=== PATIENT | female | born 1990 | race American Indian/Alaskan Native ===

== ENCOUNTER 2017-10-14 05:39 | Inpatient (IN) | payer BC ==
[2017-10-14 05:49] VITALS: BMI 32.1
--- NOTE | 2017-10-14 05:49 | OBHP ---
Datetime: 10/14/2017 05:47 IP Adm Impression: Term, intrauterine IP Admit Plan: Admit to unit; Initiate Section protocol Admit Comment, IP Provider: at [id number] he c/o ctxs and dec fm. pt has previous c/s, no lof. obhx 1 x c/s pmh den med pnv all njda psh c/s soch de a/p at 38weeks previous c/s admit to l_d for c/s npo/ivf labs cont donald and efm dr sun will take the consent Pelvic Type - PN: Adequate Extremities - PN: Normal Abdomen - PN: Normal Back - PN: Normal Breast - PN: Normal Lungs - PN: Normal Heart - PN: Normal Thyroid - PN: Normal Neurologic - PN: Normal HEENT - PN: Normal General - PN: Normal FHR - Baseline A Provider: [id number] Contraction Comments Provider: occ IP Hx Assessment: The History has been Reviewed and is Current EGA AdmitDate IP: 38.0 Vital Signs Provider: Reviewed; Within Normal Limits IP Chief Complaint: Uterine contractions; Decreased movement NICHD Variability Prov Fetus A: Moderate 6-25bpm NICHD Accel Fetus A IP Provider: [id number] FHR Category Provider Fetus A: Category I Genitourinary Exam: Normal DTRs - PN: Normal
[2017-10-14] MEDS ORDERED: Sodium Citrate/Citric Acid 15 ml Sol PO ONE (05:50)
[2017-10-14] MEDS ORDERED: cefOXitin IV 2 gm in Dextrose 2 GM/50 ML BAG IVPB ONE ×2 (05:50→06:46)
[2017-10-14] MEDS ORDERED: Lactated Ringer's 1,000 ML IV SCH (06:00)
[2017-10-14 06:06] LABS: BASO % 0.5 % (0.0-2.0); EOS % 0.2 % (0.0-4.0); HEMATOCRIT 31.7 % (34.0-47.0); LYMPH # 2.3 K/uL (1.0-4.3); LYMPH % 23.7 % (20.0-40.0); MEAN CELL VOLUME 80.8 fL (81.0-99.0); MEAN CORPUSCULAR HEMOGLOBIN 25.6 pg (27.0-31.0); MEAN CORPUSCULAR HGB CONC 31.7 g/dL (33.0-37.0); MEAN PLATELET VOLUME 7.6 fL (7.2-11.7); MONO # 0.7 K/uL (0.0-0.8); MONO % 7.2 % (0.0-10.0); NRBC % 0.1 % (0.0-2.0); RED CELL DISTRIBUTION WIDTH 15.5 % (11.5-14.5); WHITE BLOOD COUNT 9.7 K/uL (4.8-10.8)
[2017-10-14 06:26] LABS: RBC URINE 2 /hpf (0-3); URINE BACTERIA FEW (<OCC); URINE BILIRUBIN NEGATIVE (NEGATIVE); URINE BLOOD NEGATIVE (NEGATIVE); URINE COLOR Amber (YELLOW); URINE GLUCOSE (UA) NORMAL (Normal); URINE KETONE 2+ mg/dL (NEGATIVE); URINE LEUKOCYTE ESTERASE NEG Leu/uL (Negative); URINE PROTEIN 1+ mg/dL (NEGATIVE); URINE UROBILINOGEN NORMAL mg/dL (0.2-1.0); WBC URINE 11 /hpf (0-5)
[2017-10-14 06:32] LABS: BLOOD UREA NITROGEN 6 mg/dL (7-17); CALCIUM 8.5 mg/dl (8.6-10.4); CARBON DIOXIDE 25 mmol/L (22-30); CHLORIDE 106 mmol/L (98-107); GFR AFRICAN-AMERICAN > 60; GLUCOSE,RANDOM 79 mg/dL (65-105); POTASSIUM 3.6 mmol/L (3.6-5.2); SODIUM 138 mmol/L (132-148)
[2017-10-14] MEDS ORDERED: Sodium Citrate/Citric Acid 15 ml Sol ONE (06:47)
[2017-10-14] MEDS ORDERED: Oxytocin 20 units in LR 2,000 ML IV ONE (07:03)
[2017-10-14] MEDS ORDERED: Phenylephrine 10 mg/ml Inj ONE (07:16)
[2017-10-14] MEDS ORDERED: Morphine 1 mg/ml preservative-free Inj(Duramorph) ONE (07:19)
[2017-10-14] MEDS ORDERED: Triamcinolone Acetonide 40 mg/mL Inj ONE (07:33)
[2017-10-14] MEDS ORDERED: Oxycodone/Acetaminophen 5/325 mg Tab PO PRN ×2 (08:46)
--- NOTE | 2017-10-14 11:59 | HP ---
DATE: 12/15/2016 HISTORY OF PRESENT ILLNESS: Patient is a 27-year-old female 2, para 1 with a previous section x1 with a due date of 12/29/2017 at 38 weeks 5 days with decreased movements in the last 24 hours and contractions for the past 6 hours. She denies any leakage of fluid. She denies any vaginal bleeding. course has been essentially unremarkable. PAST OBSTETRICS HISTORY: Significant for previous labor. Patient is being currently treated with Prometrium. PAST MEDICAL HISTORY: Unremarkable. ALLERGIES: NONE. SOCIAL HISTORY: She does not smoke or drink. MEDICATIONS: Currently, she is not taking any calcium or airborne medications. PHYSICAL EXAMINATION: VITAL SIGNS: Blood pressure is 110/70, pulse is 72, respiratory rate is 20, temperature is 98.8. HEAD, EYES, EARS, NOSE AND THROAT: Within normal. CHEST: Clear. CARDIAC: Reveals normal heart sounds without any murmurs. LUNGS: Clear. BREASTS: Reveal no masses. ABDOMEN: Symphyseal fundal height is 38 cm, longitudinal lie vertex. heart tones are normal. PELVIC: She has a normal vulva. Bartholin's, urethra and [place]'s glands are within normal. Cervix is 1 cm, 50% effaced, -2 station. ADMITTING DIAGNOSIS: Intrauterine at 38 weeks, decreased movement, early labor. PLAN: To perform a lower segment section. Prior to being scheduled for the surgical procedure, the patient underwent an informed consent, discussion, and education session with me in the hospital lasting approximately 45 minutes, during which time I explained with an understandable terms the following; the nature and extent of the disease process and the nature and extent of the contemplated operation. I also explained the risks and potential complications of the operative procedures to include but not limited to infection, hemorrhoids, deep vein thrombosis, atelectasis, pneumonia, pulmonary embolism, damage to the bladder, damage to the ureter, renal insufficiency, renal failure, wound infection, wound dehiscence, incisional hernia, keloid formation, damage to large and small intestine, damage to inferior vena cava and aorta requiring extensive repair, anesthesia complications, electrolyte imbalance, possibility of , fluid overload, cerebral edema, air embolism, low scores, breathing difficulties in the baby and other complications that were discussed, but are not listed above. Also discussed with the patient the anticipated benefits and results of the surgery including a conservative estimate of the successful outcome. I discussed with the patient about the operation that are not accomplished. I informed the patient that the possibility of unanticipated pathology requiring a more extensive procedure. All of the questions from the patient were encouraged, welcomed and answered to her satisfaction. The patient was given the opportunity to her own blood for using an autologous blood transfusion prenatally and she had declined. Tucker Lopez MD
[2017-10-14] MEDS: Simethicone 80 mg Chewtab PO SCH ×3 (13:44→22:26)
[2017-10-14] MEDS: cefOXitin IV 2 gm in Dextrose 2 GM/50 ML BAG IVPB SCH ×2 (17:08→22:21)
--- NOTE | 2017-10-15 01:10 | OP ---
PROCEDURE DATE: 10/14/2017 PREOPERATIVE DIAGNOSES: Intrauterine at 38 weeks, early labor, decreased movement. POSTOPERATIVE DIAGNOSES: Intrauterine at 38 weeks, early labor, decreased movement. PROCEDURE: Lower segment section. FINDINGS: A live female , Apgars 9 at 1 minute and 9 at 5 minutes with normal tubes and ovaries. SURGEON: Tucker Lopez MD ROAD ROLLER ENGINEER: Dr. Garcia. TYPE OF ANESTHESIA: Spinal. ESTIMATED BLOOD LOSS: 250 mL. COMPLICATIONS: Nil. DESCRIPTION OF PROCEDURE: After the risks, benefits, and alternatives of the planned procedures including but not limited to infection, hemorrhage, deep vein thrombosis, atelectasis, pneumonia, pulmonary embolism, damage to the bladder, damage to the ureter, renal insufficiency, renal failure, wound infection, wound dehiscence, incisional hernia, keloid formation, damage to large and small intestines, damage to inferior vena cava and aorta requiring extensive repair, anesthesia complications, electrolyte imbalance, possibility of , low scores, breathing difficulties in the baby and other complications that were discussed, but are not listed above, have been explained to the patient and all her questions answered. Informed consent was obtained. The patient was taken to the operating room in a stable condition. Under suitable level of spinal analgesia, she was prepped and draped in a sterile fashion after having been placed in a supine position. The abdomen was entered through a Pfannenstiel-type incision and carried through the subcutaneous tissues to the fascia. Fascia was opened transversely and dissected off the rectus abdominis musculature. The rectus abdominis musculature was then in the midline to remove the parietal peritoneum, which was entered sharply and incised superiorly and inferiorly. The bladder peritoneum was then incised in a curvilinear fashion and dissected off the lower uterine segment. The lower uterine segment was then entered through a curvilinear incision. Surgeon's fingers were inserted into the lower uterine segment to grasp the infant's head, which was lying in a right occipital anterior position. The head was easily delivered, nose and mouth was suctioned free of amniotic fluid, and the remainder of the was delivered without any difficulty. Cord was doubly clamped and cut and the baby was handed over to the diesel dinkey operator who was in attendance. Cord blood was collected with Pitocin running, placenta was manually removed. The endometrium was then cleaned free of remaining membranes and clots. Uterine incision was then closed in layers with the first layer being a running interlocking layer using #1 chromic and the second layer being used to imbricate the first layer. Hemostasis was good. The bladder peritoneum was then reapproximated using a running suture of 2-0 chromic. Peritoneal cavity was then irrigated using copious amounts of saline. Saline was evacuated. The abdomen was then closed in layers with 0 chromic to the parietal peritoneum. Rectus muscles were reapproximated using interrupted sutures of 0 chromic. Fascia was reapproximated using 2 separate running sutures of 0 Vicryl to meet in the midline. Subcutaneous tissues were reapproximated using interrupted sutures of 0 plain, and the initial skin incision was reapproximated using 4-0 Vicryl in a subcuticular fashion. Estimated blood loss for the procedure was 250 mL. Pad, needle, and instrument counts were correct x2. There were no complications. Tucker Lopez MD
[2017-10-15] MEDS: cefOXitin IV 2 gm in Dextrose 2 GM/50 ML BAG IVPB SCH (07:03)
[2017-10-15 07:57] LABS: BASO % 0.1 % (0.0-2.0); HEMATOCRIT 28.4 % (34.0-47.0); LYMPH # 1.1 K/uL (1.0-4.3); LYMPH % 8.5 % (20.0-40.0); MEAN CELL VOLUME 79.6 fL (81.0-99.0); MEAN CORPUSCULAR HEMOGLOBIN 25.5 pg (27.0-31.0); MEAN PLATELET VOLUME 7.9 fL (7.2-11.7); MONO # 0.8 K/uL (0.0-0.8); MONO % 6.6 % (0.0-10.0); NRBC % 0.1 % (0.0-2.0); PLATELET COUNT 239 K/uL (130-400); RED CELL DISTRIBUTION WIDTH 15.4 % (11.5-14.5); WHITE BLOOD COUNT 12.8 K/uL (4.8-10.8)
[2017-10-15] MEDS ORDERED: Bisacodyl 5mg EC Tab PO ONE (10:00)
[2017-10-15] MEDS: Simethicone 80 mg Chewtab PO SCH ×4 (10:04→22:19)
[2017-10-15] MEDS: Enoxaparin 40 mg Syringe SC SCH (10:05)
[2017-10-15 10:34] LABS: NEUTROPHIL 86 % (50-75); TOTAL CELLS COUNTED 100
--- NOTE | 2017-10-15 12:37 | PN ---
DATE: SUBJECTIVE: The patient has no complaint. She is ambulating, passing flatus. No bowel movement yet. OBJECTIVE: VITAL SIGNS: Stable. She is afebrile. ABDOMEN: Soft. EXTREMITIES: Nontender with no evidence of DVT. NEUROLOGIC: She is alert and oriented x2 with normal reflexes. ASSESSMENT AND PLAN: The patient is status post section day 1. Our plan is to ambulate the patient and advance diet as tolerated. Tucker Lopez MD
[2017-10-16] MEDS: Simethicone 80 mg Chewtab PO SCH ×4 (09:35→21:40)
[2017-10-16] MEDS: Enoxaparin 40 mg Syringe SC SCH (09:37)
[2017-10-16] MEDS ORDERED: Influenza Vaccine 60 mcg/0.5 mL SYR (4YR UP) IM ONE (10:00)
[2017-10-17 12:56] VITALS: BP 115/75; PULSE 90; RESP 18; TEMP 97.8; O2SAT 99
== END 2017-10-17 08:30 | disposition home or self-care (01) | DRG 766 ==
LOC: C.EROB 05:39 → C.4D 05:58 → C.4M 10:30
PROVIDERS: ADMIT Obstetrics & Gynecology Reproductive Endocrinology; ATTEND Obstetrics & Gynecology Reproductive Endocrinology
PROC: 10D00Z1 Extraction of Products of Conception, Low, Open Approach (ICD-10-PCS; principal; 2017-10-14)
DX: O36.8130 Decreased fetal movements, third trimester, not applicable or unspecified (principal); O34.219 Maternal care for unspecified type scar from previous cesarean delivery; Z3A.38 38 weeks gestation of pregnancy; Z37.0 Single live birth